=== PATIENT | female | born 1985 | race Caucasian/White ===

== ENCOUNTER → 2016-10-17 | Outpatient (CLI) | payer BC ==
[~2016-10-17] MED LIST: PERC5TAB12 PO; PRENTAB43 PO
[2016-10-17 08:10] LABS: ESTRADIOL 58.1 PG/ML; PROGESTERONE 23.1 NG/ML
== END ==
LOC: M LAB 07:15
PROVIDERS: ATTEND Obstetrics & Gynecology Reproductive Endocrinology
DX: Z31.49 Encounter for other procreative investigation and testing (principal)

== ENCOUNTER → 2016-10-24 | Outpatient (CLI) | payer BC ==
[2016-10-24 07:46] LABS: HCG, SERUM QUANTITATIVE < 1.0 MIU/ML
[2016-10-24 10:28] LABS: PROGESTERONE 17.6 NG/ML
== END ==
LOC: M LAB 06:40
PROVIDERS: ATTEND Obstetrics & Gynecology Reproductive Endocrinology
DX: Z32.00 Encounter for pregnancy test, result unknown (principal)

== ENCOUNTER → 2016-11-24 | Outpatient (CLI) | payer BC ==
[2016-11-24 10:03] LABS: ESTRADIOL 338.8 PG/ML; PROGESTERONE 8.3 NG/ML
== END ==
LOC: M LAB 06:32
PROVIDERS: ATTEND Obstetrics & Gynecology Reproductive Endocrinology
DX: N97.9 Female infertility, unspecified (principal)

== ENCOUNTER → 2016-12-01 | Outpatient (CLI) | payer BC ==
[2016-12-01 07:44] LABS: HCG, SERUM QUANTITATIVE < 1.0 MIU/ML
[2016-12-01 11:10] LABS: PROGESTERONE 8.3 NG/ML
== END ==
LOC: M LAB 06:54
PROVIDERS: ATTEND Obstetrics & Gynecology Reproductive Endocrinology
DX: Z32.00 Encounter for pregnancy test, result unknown (principal)

== ENCOUNTER → 2017-02-10 | Outpatient (CLI) | payer BC ==
[2017-02-10 10:58] LABS: ESTRADIOL 429.6 PG/ML; PROGESTERONE 59.6 NG/ML
== END ==
LOC: M LAB 06:47
PROVIDERS: ATTEND Obstetrics & Gynecology Reproductive Endocrinology
DX: N97.9 Female infertility, unspecified (principal)

== ENCOUNTER → 2017-02-17 | Outpatient (CLI) | payer BC ==
[2017-02-17 08:04] LABS: HCG, SERUM QUANTITATIVE < 1.0 MIU/ML
[2017-02-17 09:22] LABS: PROGESTERONE 4.7 NG/ML
== END ==
LOC: M LAB 06:56
PROVIDERS: ATTEND Obstetrics & Gynecology Reproductive Endocrinology
DX: N97.9 Female infertility, unspecified (principal)

== ENCOUNTER → 2017-02-27 | Outpatient (CLI) | payer BC ==
--- NOTE | 2017-02-27 07:30 | REP ---
Clinical: Infertility. Technique: Transvaginal pelvic ultrasound with britt scale and color Doppler evaluation. Comparison: 02/23/2017. Findings: Normal anteverted uterus measures 8.1 x 3.7 x 4.7 cm. The endometrial complex measures 8 mm thickness and appears normal. No pelvic or endocervical fluid is appreciated. No pelvic mass lesion. Right ovary measures 3.8 x 2.7 x 2.5 cm and includes 13 mm follicle along with multiple subcentimeter follicles. Right ovary RI equals 0.56. Left ovary measures 3.0 x 2.7 x 2.7 cm and includes multiple subcentimeter follicles. Left ovary RI equals 0.49. Impression: Normal pelvic ultrasound with predominantly subcentimeter bilateral follicles noted. Signed by Librado Jack MD 02/27/2017 07:22 A
[2017-02-27 09:22] LABS: PROGESTERONE < 0.2 NG/ML
[2017-02-27 09:23] LABS: ESTRADIOL 130.9 PG/ML
== END ==
LOC: M RAD 06:42
PROVIDERS: ATTEND Obstetrics & Gynecology Reproductive Endocrinology
DX: N97.9 Female infertility, unspecified (principal)

== ENCOUNTER → 2017-03-02 | Outpatient (CLI) | payer BC ==
--- NOTE | 2017-03-02 08:02 | REP ---
Clinical: Infertility. Technique: Transvaginal examination. Comparison: 02/27/2017. Findings: Normal anteverted uterus measures 8.3 x 3.5 x 4.8 cm. The endometrial complex measures 11 mm thickness with trace endocervical fluid in the lower uterine segment noted. No pelvic fluid or adnexal mass lesion. Right ovary measures 3.8 x 2.8 x 3.7 cm and includes four follicles measuring 10-14 mm maximal diameter along with 25-30 sub centimeter follicles. Left ovary measures 3.5 x 2.3 x 2.9 cm and includes four follicles measuring 10-14 mm maximal diameter along with 25-30 sub centimeter follicles. Impression: Multiple bilateral follicles as described above. Signed by Librado Jack MD 03/02/2017 07:53 A
[2017-03-02 10:07] LABS: PROGESTERONE < 0.2 NG/ML
[2017-03-02 10:08] LABS: ESTRADIOL 337.6 PG/ML; LUTEINIZING HORMONE 1.7 mIU/mL
== END ==
LOC: M RAD 06:35
PROVIDERS: ATTEND Obstetrics & Gynecology Reproductive Endocrinology
DX: N97.9 Female infertility, unspecified (principal)

== ENCOUNTER → 2017-03-04 | Outpatient (CLI) | payer BC ==
--- NOTE | 2017-03-04 08:54 | REP ---
Clinical: Infertility. Comparison: 03/02/2017. Findings: Anteverted uterus measures 8.7 x 3.7 x 5.0 cm. Endometrial complex measures 14 mm thickness trace endocervical fluid is again identified and unchanged. No pelvic fluid or adnexal mass lesion. Right ovary measures 4.2 x 3.4 x 3.7 cm and includes four follicles between 12 and 19 mm along with greater than 20 sub centimeter follicles. Left ovary measures 3.5 x 2.8 x 3.5 cm with three follicles between 11 and 18 mm along with greater than 20 sub centimeter follicles. Impression: Multiple bilateral follicles as detailed above. Signed by Librado Jack MD 03/04/2017 08:45 A
[2017-03-04 09:23] LABS: LUTEINIZING HORMONE 1.5 mIU/mL; PROGESTERONE 0.3 NG/ML
[2017-03-04 09:24] LABS: ESTRADIOL 573.3 PG/ML
== END ==
LOC: M RAD 06:27
PROVIDERS: ATTEND Obstetrics & Gynecology Reproductive Endocrinology
DX: N97.9 Female infertility, unspecified (principal)

== ENCOUNTER → 2017-03-13 | Outpatient (CLI) | payer BC ==
[2017-03-13 09:52] LABS: ESTRADIOL 295.2 PG/ML
[2017-03-13 11:43] LABS: PROGESTERONE 55.4 NG/ML
== END ==
LOC: M LAB 06:49
PROVIDERS: ATTEND Obstetrics & Gynecology Reproductive Endocrinology
DX: Z31.49 Encounter for other procreative investigation and testing (principal)

== ENCOUNTER → 2017-03-20 | Outpatient (CLI) | payer BC ==
[2017-03-20 08:23] LABS: HCG, SERUM QUANTITATIVE < 1.0 MIU/ML
[2017-03-20 09:33] LABS: PROGESTERONE 13.7 NG/ML
== END ==
LOC: M LAB 07:10
PROVIDERS: ATTEND Obstetrics & Gynecology Reproductive Endocrinology
DX: Z32.00 Encounter for pregnancy test, result unknown (principal)

== ENCOUNTER → 2017-09-02 | Outpatient (CLI) | payer BC ==
[2017-09-02 13:06] LABS: ESTRADIOL 705.3 PG/ML; LUTEINIZING HORMONE 3.2 mIU/mL
[2017-09-02 13:06] LABS: PROGESTERONE < 0.2 NG/ML
== END ==
LOC: M LAB 12:11
DX: N97.9 Female infertility, unspecified (principal)
CPT/HCPCS: 83002

== ENCOUNTER → 2017-09-02 | Outpatient (CLI) | payer BC | LOC: M RAD 16:09 | DX: E28.9 Ovarian dysfunction, unspecified (principal) | CPT/HCPCS: 76830 ==

== ENCOUNTER → 2017-09-16 | Outpatient (CLI) | payer BC ==
[2017-09-16 10:43] LABS: PROGESTERONE 35.8 NG/ML
[2017-09-16 10:43] LABS: ESTRADIOL 877.1 PG/ML
== END ==
LOC: M LAB 07:17
DX: E28.9 Ovarian dysfunction, unspecified (principal)
CPT/HCPCS: 84443

== ENCOUNTER → 2017-09-21 | Outpatient (CLI) | payer BC ==
[2017-09-21 08:07] LABS: HCG, SERUM QUANTITATIVE 157 MIU/ML
[2017-09-21 10:11] LABS: PROGESTERONE 26.8 NG/ML
== END ==
LOC: M LAB 07:07
DX: E28.9 Ovarian dysfunction, unspecified (principal)
CPT/HCPCS: 84702

== ENCOUNTER → 2017-09-30 | Outpatient (CLI) | payer BC ==
[2017-09-30 07:50] LABS: ESTRADIOL 839.7 PG/ML
[2017-09-30 07:58] LABS: HCG, SERUM QUANTITATIVE 5388 MIU/ML
== END ==
LOC: M RAD 06:27
DX: O09.00 Supervision of pregnancy with history of infertility, unspecified trimester (principal)
CPT/HCPCS: 76801

== ENCOUNTER → 2017-10-08 | Outpatient (CLI) | payer BC ==
[2017-10-08 08:50] LABS: HCG, SERUM QUANTITATIVE 38655 MIU/ML
[2017-10-08 10:06] LABS: PROGESTERONE 32.6 NG/ML
[2017-10-08 10:07] LABS: ESTRADIOL 381.1 PG/ML
== END ==
LOC: M RAD 07:20
DX: O34.11 Maternal care for benign tumor of corpus uteri, first trimester (principal); Z3A.01 Less than 8 weeks gestation of pregnancy
CPT/HCPCS: 76801

== ENCOUNTER → 2017-10-19 | Outpatient (CLI) | payer BC ==
[2017-10-19 14:06] LABS: BASO % 0.3 % (0.0-1.0); EOS # 0.1 10^3/uL (0.0-0.50); EOS % 1.1 % (0.0-3.0); HEMOGLOBIN 11.9 g/dl (12.0-15.5); IMMATURE GRANULOCYTE % 0.7 % (0-3.0); LYMPH # 1.4 10^3/uL (1.5-4.5); LYMPH % 20.2 % (24.0-44.0); MEAN CORPUSCULAR HEMOGLOBIN 25.1 pg (27.0-33.0); MEAN CORPUSCULAR HGB CONC 31.3 g/dl (32.0-36.5); MONO # 0.4 10^3/uL (0.0-0.8); MONO % 5.8 % (0.0-5.0); NEUTROPHILS # 5.1 10^3/uL (1.8-7.7); NEUTROPHILS % 71.9 % (36.0-66.0); PLATELET COUNT, AUTOMATED 206 10^3/uL (150-450); RED BLOOD COUNT 4.75 10^6/uL (4.00-5.40); RED CELL DISTRIBUTION WIDTH 15.6 % (11.5-14.5); WHITE BLOOD COUNT 7.1 10^3/uL (4.0-10.0)
[2017-10-19 15:31] LABS: CHLAMYDIA DNA AMPLIFICATION NEGATIVE (NEGATIVE); GC DNA AMPLIFICATION NEGATIVE (NEGATIVE)
[2017-10-21 10:45] LABS: RUBELLA IgG QUALITATIVE IMMUNE (IMMUNE)
[2017-10-21 10:58] LABS: HBsAg Prenatal NEGATIVE (NEGATIVE)
[2017-10-21 11:15] LABS: HIV 1&2 SCREEN CENTAUR NEGATIVE (NEGATIVE)
[2017-10-21 11:15] LABS: HEPATITIS C VIRUS ABY INDEX 0.1 INDEX (<0.8)
== END ==
LOC: M LAB 13:06
DX: Z34.81 Encounter for supervision of other normal pregnancy, first trimester (principal); Z3A.01 Less than 8 weeks gestation of pregnancy
CPT/HCPCS: 86762

== ENCOUNTER → 2017-11-11 | Outpatient (CLI) | payer BC | LOC: M LAB 07:07 | DX: Z36.89 Encounter for other specified antenatal screening (principal); O09.511 Supervision of elderly primigravida, first trimester; Z3A.00 Weeks of gestation of pregnancy not specified | CPT/HCPCS: 36415 ==

== ENCOUNTER → 2017-11-26 | Outpatient (CLI) | payer BC | LOC: M LAB 07:44 | DX: O09.511 Supervision of elderly primigravida, first trimester (principal) | CPT/HCPCS: 36415 ==

== ENCOUNTER → 2017-12-07 | Outpatient (CLI) | payer BC | LOC: M SMT 12:58 | DX: O09.511 Supervision of elderly primigravida, first trimester (principal) | CPT/HCPCS: 36415 ==

== ENCOUNTER → 2017-12-10 | Outpatient (CLI) | payer BC | LOC: M RAD 15:11 | DX: O09.511 Supervision of elderly primigravida, first trimester (principal); Z3A.15 15 weeks gestation of pregnancy | CPT/HCPCS: 76811 ==

== ENCOUNTER → 2018-01-21 | Outpatient (CLI) | payer BC | LOC: M RAD 15:37 | DX: Z34.82 Encounter for supervision of other normal pregnancy, second trimester (principal); Z36.89 Encounter for other specified antenatal screening; Z3A.21 21 weeks gestation of pregnancy | CPT/HCPCS: 76816 ==

== ENCOUNTER → 2018-01-26 | Outpatient (CLI) | payer BC ==
[2018-01-26 14:19] LABS: BASO % 0.5 % (0.0-1.0); EOS # 0.1 10^3/uL (0.0-0.50); EOS % 1.2 % (0.0-3.0); HEMOGLOBIN 10.4 g/dl (12.0-15.5); IMMATURE GRANULOCYTE % 0.5 % (0-3.0); LYMPH # 1.2 10^3/uL (1.5-4.5); LYMPH % 21.1 % (24.0-44.0); MEAN CORPUSCULAR HEMOGLOBIN 25.5 pg (27.0-33.0); MEAN CORPUSCULAR HGB CONC 31.5 g/dl (32.0-36.5); MEAN CORPUSCULAR VOLUME 80.9 fl (80.0-96.0); MONO # 0.5 10^3/uL (0.0-0.8); MONO % 8.4 % (0.0-5.0); NEUTROPHILS # 3.9 10^3/uL (1.8-7.7); NEUTROPHILS % 68.3 % (36.0-66.0); PLATELET COUNT, AUTOMATED 129 10^3/uL (150-450); RED BLOOD COUNT 4.08 10^6/uL (4.00-5.40); RED CELL DISTRIBUTION WIDTH 15.3 % (11.5-14.5); WHITE BLOOD COUNT 5.7 10^3/uL (4.0-10.0)
[2018-01-26 15:01] LABS: ALBUMIN/GLOBULIN RATIO 1.07 (1.00-1.93); ALKALINE PHOSPHATASE 72 U/L (45-117); ALT/SGPT 22 U/L (12-78); ANION GAP 8 MEQ/L (8-16); AST/SGOT 16 U/L (7-37); BILIRUBIN,TOTAL 0.4 MG/DL (0.2-1.0); BLOOD UREA NITROGEN 12 MG/DL (7-18); CALCIUM LEVEL 8.6 MG/DL (8.5-10.1); CARBON DIOXIDE LEVEL 25 MEQ/L (21-32); CHLORIDE LEVEL 108 MEQ/L (98-107); CREATININE FOR GFR 0.48 MG/DL (0.55-1.30); FREE T4 1.25 NG/DL (0.76-1.46); GLOMERULAR FILTRATION RATE > 60.0 (>60); GLUCOSE, FASTING 71 MG/DL (70-100); POTASSIUM SERUM 4.3 MEQ/L (3.5-5.1); SODIUM LEVEL 141 MEQ/L (136-145); TOTAL PROTEIN 5.8 GM/DL (6.4-8.2)
== END ==
LOC: M WUC 11:04
DX: R59.9 Enlarged lymph nodes, unspecified (principal)
CPT/HCPCS: 84443

== ENCOUNTER → 2018-02-01 | Outpatient (CLI) | payer BC | LOC: M RAD 06:16 | DX: R59.9 Enlarged lymph nodes, unspecified (principal) | CPT/HCPCS: 76536 ==

== ENCOUNTER → 2018-03-10 | Outpatient (CLI) | payer BC ==
[2018-03-10 17:37] LABS: HEMATOCRIT 34.3 % (36.0-47.0); HEMOGLOBIN 10.5 g/dl (12.0-15.5); MEAN CORPUSCULAR HEMOGLOBIN 24.8 pg (27.0-33.0); MEAN CORPUSCULAR HGB CONC 30.6 g/dl (32.0-36.5); MEAN CORPUSCULAR VOLUME 80.9 fl (80.0-96.0); PLATELET COUNT, AUTOMATED 130 10^3/uL (150-450); RED BLOOD COUNT 4.24 10^6/uL (4.00-5.40); RED CELL DISTRIBUTION WIDTH 14.9 % (11.5-14.5); WHITE BLOOD COUNT 5.3 10^3/uL (4.0-10.0)
[2018-03-10 17:40] LABS: GLUCOSE CHALLENGE TEST 1 HOUR 128 MG/DL (LESS THAN 140)
== END ==
LOC: M SMT 14:36
DX: Z34.82 Encounter for supervision of other normal pregnancy, second trimester (principal); Z36.89 Encounter for other specified antenatal screening
CPT/HCPCS: 82950

== ENCOUNTER 2018-05-01 09:24 | Outpatient (CLI) | payer BC ==
[~2018-05-01] VITALS: Ht 162.6 cm; Wt 102.8 kg
[~2018-05-01 09:24] MED LIST changes: +IRON240T PO; +PREN29CH2 PO
[2018-05-01 09:44] VITALS: BP 132/79
--- NOTE | 2018-05-01 11:04 | NUR ---
L&D Note: S: 33yo at 36wks presents with c/o LOF. Denies reg contractions or vaginal bleeding. Reports active movement. O: vss, AF cat 1 tracing SSE: neg Nitrazine, ferning and pooling cx: closed A/P: 23yo at 36wks not in labor or PPROM reassuring status -home with PTL precautions -FKCs -f/u next week at OB appt Inocencia Evans MD
== END 2018-05-01 10:40 | disposition home or self-care (01) ==
LOC: M LDO 09:24
PROVIDERS: ATTEND Obstetrics & Gynecology
DX: O47.9 False labor, unspecified (principal); Z3A.36 36 weeks gestation of pregnancy
CPT/HCPCS: 59025; 87081; G0378; G0463

== ENCOUNTER → 2018-05-20 | Outpatient (CLI) | payer BC ==
[~2018-05-20] MED LIST changes: +LIDOCAINE 1% MDV 20ML VIAL As Ordered ONE
--- NOTE | 2018-05-20 15:54 | REP ---
ULTRASOUND-GUIDED RIGHT SUPRACLAVICULAR LYMPH NODE BIOPSY The procedure was performed under the direct supervision of Dr. Arshad. Patient has a history of a 5.9 x 3.5 x 4.8 cm lymph node in the right supraclavicular region seen on a previous ultrasound dated 02/01/2018. The risks and benefits of the procedure were explained to the patient and informed consent was obtained. The right supraclavicular lymph node was localized using ultrasound guidance. The skin was prepped and draped in a sterile fashion. 1% lidocaine was used as a local anesthetic. Using ultrasound guidance a 19/20 gauge coaxial needle biopsy system was inserted and advanced into the lymph node. Eight core biopsy samples were obtained and sent to lab. The patient tolerated the procedure well and there were no immediate complications. After the appropriate amount of monitored convalescence the patient was discharged from the department. Reviewed by IRIS Nickerson 05/20/2018 01:38 P Electronically Signed by Chalo Arshad MD 05/20/2018 03:46 P
== END ==
LOC: M RADPRO 08:21
PROVIDERS: ATTEND Internal Medicine Hematology & Oncology
DX: C85.11 Unspecified B-cell lymphoma, lymph nodes of head, face, and neck (principal)

== ENCOUNTER 2018-05-28 15:45 | Inpatient (IN) | payer BC ==
[2018-05-28] VITALS (7 sets, daily range): BP systolic 101–130; BP diastolic 56–82
[~2018-05-28] VITALS: Ht 162.6 cm; Wt 106.2 kg
[~2018-05-28 15:45] MED LIST changes: -LIDOCAINE 1% MDV 20ML VIAL As Ordered ONE
[2018-05-28 17:07] LABS: HEMATOCRIT 35.9 % (36.0-47.0); HEMOGLOBIN 11.5 g/dl (12.0-15.5); MEAN CORPUSCULAR HEMOGLOBIN 25.8 pg (27.0-33.0); MEAN CORPUSCULAR VOLUME 80.7 fl (80.0-96.0); PLATELET COUNT, AUTOMATED 122 10^3/uL (150-450); RED BLOOD COUNT 4.45 10^6/uL (4.00-5.40); WHITE BLOOD COUNT 6.1 10^3/uL (4.0-10.0)
[2018-05-28] MEDS: miSOPROStol 50 MCG 1/2 TAB (S0191) PO SCH ×2 (17:11→21:20)
--- NOTE | 2018-05-28 17:38 | HPE ---
DATE OF ADMISSION: 05/28/2018 Terra is a 33-year-old 2, para 0-0-1-0 at 40 weeks gestation with an estimated date of confinement (EDC) of 05/28/2018 based on in-vitro fertilization (IVF) transfer. She presents to labor and delivery today per consult with Dr. Inocencia Evans for induction of labor due to term . She does deny any regular contractions, vaginal bleeding, and leakage of fluid. The fetus has been active. Her care was initiated at [facility] in the first trimester. Her course complicated by panorama testing which demonstrated high risk for triploidy fetus, trisomy 18 or 13. She did undergo a center consult and ultrasound, which demonstrated normal anatomy. She was offered an amniocentesis, which she declined. The patient feels that her test was a false positive. Advanced maternal age. She has undergone a recent right neck lymph node biopsy on 05/20/2017 with pathology that reports high-grade B-cell lymphoma, not otherwise specified. Final diagnosis will be issued when results of her FISH are reported. The patient is unaware of this diagnosis at this time. She is scheduled in 6 days to review these results at hematology/oncology here in [place]. OBSTETRICAL HISTORY: September 2014 she had a right ectopic with a right salpingectomy. OBSTETRIC LABORATORIES: A positive, antibody screen negative. Pap was normal. Rubella immune. VDRL nonreactive. Urine culture: No growth. Hepatitis B surface antigen negative. HIV negative. Hepatitis C nonreactive. Gonorrhea and chlamydia negative. Panorama testing: High risk for trisomy 18 or 13. Gestational diabetic screening normal at 128, and her GBS is negative. PAST MEDICAL HISTORY: Childhood varicella. SURGERIES: 1. Right salpingectomy. 2. Cholecystectomy. FAMILY HISTORY: Mental retardation/autism. SOCIAL HISTORY: The patient is . She is a nonsmoker. Denies alcohol and drug use. She does have a history for human papilloma virus (HPV). She denies history of abuse, physical, sexual, and emotional. ALLERGIES: No known drug allergies. CURRENT MEDICATIONS: Include vitamin PHYSICAL EXAMINATION: Temperature 98.4, pulse 76, respirations 18, blood pressure (BP) 110/79. heart rate is 130 with moderate variability. Positive accelerations. No decelerations observed. No pattern of regular contractions. Her abdomen is gravid, cephalic presentation. Estimated weight 8 pounds. Sterile vaginal exam: 1.5 cm dilated, 75% effaced, -3 station. Posterior. Moderate texture. No bloody show. ASSESSMENT: Intrauterine at 40 weeks. heart rate category 1. PLAN: Admit the patient to labor per consult with Dr. Inocencia Evans. Routine labs. Out of bed ad bishnu. Regular diet at this time. Saline lock. I do plan to start misoprostol 50 mcg by mouth every 4 hours for cervical ripening. I did review risks to induction, including, but not limited to, intolerance to labor, increased risk for section, arrest of labor, arrest of descent. The patient has been verbally consented for emergency surgery and blood products if necessary. The patient and her have had all their questions answered and do desire to proceed with induction. LES
[2018-05-29] VITALS (10 sets, daily range): BP systolic 101–131; BP diastolic 57–87
[2018-05-29] MEDS: miSOPROStol 50 MCG 1/2 TAB (S0191) PO SCH (02:11)
[2018-05-29] MEDS ORDERED: BUTORPHANOL 2 MG/ML INJ (J0595) IV ONE (04:45)
[2018-05-29] MEDS ORDERED: PROMETHAZINE INJ 25 MG/ML VIAL (J2550) IV ONE (04:45)
[2018-05-29] MEDS ORDERED: OXYTOCIN DRIP 30 UNITS in APPROPRIATE DILUENT 1 EA IV SCH ×2 (04:45→14:16)
[2018-05-29] MEDS: LR 1,000 ML IV SCH ×2 (06:35→08:55)
[2018-05-29 12:46] LABS: HEMATOCRIT 34.5 % (36.0-47.0); HEMOGLOBIN 10.9 g/dl (12.0-15.5); MEAN CORPUSCULAR HEMOGLOBIN 25.4 pg (27.0-33.0); MEAN CORPUSCULAR HGB CONC 31.6 g/dl (32.0-36.5); MEAN CORPUSCULAR VOLUME 80.4 fl (80.0-96.0); PLATELET COUNT, AUTOMATED 106 10^3/uL (150-450); RED BLOOD COUNT 4.29 10^6/uL (4.00-5.40); WHITE BLOOD COUNT 8.8 10^3/uL (4.0-10.0)
[2018-05-29] MEDS ORDERED: OXYTOCIN INJ 10 UNITS/ML VIAL (J2590) As Ordered ONE ×2 (12:58→14:03)
[2018-05-29] MEDS ORDERED: ONDANSETRON 4MG/2ML VIAL (J2405) As Ordered ONE (12:59)
[2018-05-29] MEDS ORDERED: dexameTHASONE 4 MG/ML 1ML VIAL (J1100) As Ordered ONE (12:59)
[2018-05-29] MEDS ORDERED: BUPIVACAINE/DEXTROSE 0.75% 2 ML AMP As Ordered ONE (12:59)
[2018-05-29] MEDS ORDERED: BICITRA 30ML SOLN UDC As Ordered ONE (12:59)
[2018-05-29] MEDS ORDERED: KETOROLAC 60 MG/2 ML VIAL (J1885) As Ordered ONE (12:59)
[2018-05-29] MEDS ORDERED: TERBUTALINE SULFATE 1 MG/ML VIAL (J3105) As Ordered ONE (13:00)
[2018-05-29] MEDS ORDERED: ceFAZolin 2 GM/D5W 50 ML IV BAG (J0690 PER 500MG) As Ordered ONE (13:00)
[2018-05-29] MEDS ORDERED: MORPHINE PRES-FREE INJ 10 MG/10 ML VIAL (J2274) As Ordered ONE (13:02)
[2018-05-29] MEDS ORDERED: fentaNYL 100 MCG/2 ML INJECTION (J3010) As Ordered ONE (13:02)
--- NOTE | 2018-05-29 13:08 | NUR ---
L&D Note - Call to room for prolong brachycardia with recurrent decelerations. 2nd episode of off turning pitocin off. terbutaline given. Plan to proceed with 1LTC S for nonreassuring tracing / inability to augment labor. Consents signed and and Urf notified. Inocencia Evans MD
[2018-05-29] MEDS ORDERED: BICITRA 30ML SOLN UDC PO ONE (13:15)
[2018-05-29] MEDS ORDERED: ONDANSETRON 4MG/2ML VIAL (J2405) IV PRN ×2 (13:19→14:30)
[2018-05-29] MEDS ORDERED: METOCLOPRAMIDE INJ 10MG/2ML VIAL (J2765) IV PRN (13:19)
[2018-05-29] MEDS ORDERED: NALOXONE INJ 0.4 MG/1 ML VIAL (J2310) IV PRN ×2 (13:19)
[2018-05-29] MEDS ORDERED: diphenhydrAMINE INJ 50MG/ML VIAL (J1200) IV PRN (13:19)
[2018-05-29] MEDS ORDERED: NALBUPHINE HCL 10 MG/ML AMP (J2300) IV PRN (13:19)
[2018-05-29] MEDS ORDERED: TERBUTALINE SULFATE 1 MG/ML VIAL (J3105) SC ONE (13:45)
[2018-05-29 13:46] LABS: CORD GAS ABE A -3.1; CORD GAS HCO3 A 23.3 MEQ/L; CORD GAS O2 SAT A 78.1 %; CORD GAS PCO2 A 46.1 mmHg; CORD GAS PH A 7.321 UNITS; CORD GAS PO2 A 35.9 mmHg; CORD GAS SBC A 21.4 MEQ/L; CORD GAS TCO2 A 24.7 MEQ/L
[2018-05-29 13:49] LABS: CORD GAS ABE V -0.9; CORD GAS HCO3 V 27.9 MEQ/L; CORD GAS O2 SAT V 37.8 %; CORD GAS PCO2 V 62.8 mmHg; CORD GAS PH V 7.265 UNITS; CORD GAS PO2 V 19.1 mmHg; CORD GAS SBC V 22.1 MEQ/L; CORD GAS TCO2 V 29.8 MEQ/L
[2018-05-29] MEDS ORDERED: IBUP1TAB7 PO (14:24)
[2018-05-29] MEDS ORDERED: PERCOCET PO (14:25)
[2018-05-29] MEDS ORDERED: NORCO, ANEXSIA 5/325MG TABLET (HYDROcodone/ACETAMINOPHEN) PO PRN (14:30)
[2018-05-29] MEDS ORDERED: LR 1,000 ML IV SCH (14:30)
[2018-05-29] MEDS ORDERED: MOM 30ML SUSPENSION UDC PO PRN (14:30)
[2018-05-29] MEDS ORDERED: PERCOCET 5MG/325MG TAB PO PRN (14:30)
[2018-05-29] MEDS ORDERED: MEASLES,MUMPS,RUBELLA VACCINE INJ (MMR-II) (90707) SC SCH (14:30)
[2018-05-29] MEDS ORDERED: RHOGAM 300 MCG (1500 IU) INJ (J2790) IM SCH (14:30)
[2018-05-29] MEDS ORDERED: fentaNYL 100 MCG/2 ML INJECTION (J3010) IV PRN (14:30)
[2018-05-29] MEDS ORDERED: ePHEDrine SULFATE 25 MG/5 ML(5MG/ML) SYRINGE IV PRN (14:30)
[2018-05-29] MEDS ORDERED: OXYTOCIN 30 UNITS IN 0.9% NaCl 500ML IV BAG (J2590) As Ordered ONE (15:03)
[2018-05-29] MEDS: DOCUSATE SODIUM 100 MG CAP PO SCH (20:04)
[2018-05-29] MEDS: KETOROLAC 30 MG/ML VIAL (J1885) IV SCH (20:04)
[2018-05-30] MEDS: KETOROLAC 30 MG/ML VIAL (J1885) IV SCH ×2 (01:50→08:42)
[2018-05-30 01:53] VITALS: BP 100/67
[2018-05-30 05:47] VITALS: BP 97/54
[2018-05-30 07:24] LABS: HEMATOCRIT 32.8 % (36.0-47.0); HEMOGLOBIN 10.2 g/dl (12.0-15.5); MEAN CORPUSCULAR HEMOGLOBIN 25.5 pg (27.0-33.0); MEAN CORPUSCULAR HGB CONC 31.1 g/dl (32.0-36.5); PLATELET COUNT, AUTOMATED 134 10^3/uL (150-450)
[2018-05-30] MEDS: PRENATAL VITAMINS CHEWABLE TABLET PO SCH (08:41)
[2018-05-30] MEDS: DOCUSATE SODIUM 100 MG CAP PO SCH ×2 (08:41→19:55)
--- NOTE | 2018-05-30 10:10 | NUR ---
POD#1 S: Doing well w/o complaints. Tolerating diet, ambulating, voiding and pain well controlled. O: vss, AF gen: well appearing abd: soft, appropriately tender incision: dress ext: neg calf tenderness A/P: POD #1 s/p emergent 1LTCS - stable -continue /postoperative care -d/c plans for tomorrow Inocencia Evans MD
[2018-05-30 10:46] VITALS: BP 105/62
[2018-05-30] MEDS: PERCOCET 5MG/325MG TAB PO PRN ×2 (12:33→19:55)
--- NOTE | 2018-05-30 15:37 | RO ---
DATE OF PROCEDURE: 05/29/2018 PREPROCEDURE DIAGNOSIS: Nonreassuring heart rate tracing with bradycardia and repetitive variable decelerations. POSTPROCEDURE DIAGNOSIS: Nonreassuring heart rate tracing with bradycardia and repetitive variable decelerations. PROCEDURE PERFORMED: Primary low transverse section. SURGEON: Inocencia Evans MD ASSISTANTS: Radames Espinoza MD ANESTHESIA: Spinal. ESTIMATED BLOOD LOSS: 600 mL. INTRAVENOUS FLUIDS: 1600 mL of lactated Ringer solution. URINE OUTPUT: 100 mL. OPERATIVE FINDINGS: Liveborn male , scores 9 and 9. Weight was 3030 grams or 6 pounds 6 ounces. PREOPERATIVE ANTIBIOTICS: 2 grams of Ancef. SPECIMENS: Placenta. Cord blood and cord gases. Cord gas was 7.32, 7.26 with base excesses of minus 3.1 and minus 0.9. DESCRIPTION OF OPERATION: After informed consent was obtained and written consent was reviewed, the patient was brought to the operating room urgently where spinal anesthesia was placed. She was then placed in supine position with a left lateral tilt. She had a Carranza catheter, which was previously placed and set to gravity. She was prepped and draped in normal sterile fashion. A time-out in the operating room was then performed, identifying the patient, procedure to be performed, as well as drug allergies. Anesthesia was tested and deemed to be adequate. A Pfannenstiel skin incision was then made and carried down to the underlying rectus fascia. The fascia was scored and this incision was extended bilaterally. The fascia was then dissected off the underlying rectus muscles both superiorly and inferiorly. The rectus muscles were then in the midline. The peritoneum was then entered. The vesicouterine peritoneum was then was tented and excised to create a bladder flap. The bladder blade was then placed to retract back the bladder. A curvilinear incision was then made in the lower uterine segment. Amniotomy was then performed productive of clear fluid. The uterine incision was then extended. head was brought to the level of the incision and delivered atraumatically, followed by shoulders and corpus. Cord was clamped times two and was taken over to the warmer with dining service inspector waiting with good cry. Cord gases and blood was obtained. Placenta was then drained and delivered grossly intact. The uterus was then exteriorized and cleared of all clots and debris. The uterine incision was then closed in two layers using #0 Vicryl first in a running locking fashion and second layer closure in a running nonlocking fashion. A set of [id number] stitches were placed for hemostasis. The abdomen was then suctioned. The uterus was returned to the patient's abdomen and was reinspected and noted to be hemostatic. The anterior peritoneum was then reapproximated with #3-0 Vicryl. The rectus muscles were reapproximated with #3-0 Vicryl. The fascia was then closed with #0 Vicryl in a running nonlocking fashion. The subcutaneous tissue was then irrigated and suctioned. Subcutaneous tissue was then reapproximated with #3-0 Vicryl. Several subdermal stitches were placed with #3-0 Vicryl and the skin was closed with #4-0 Monocryl in a subcuticular fashion. The incision was then cleaned and dry. Steri-Strips were applied over the incision. The incision was dressed. The patient was then taken to recovery in stable condition. Counts were correct. The couple has decided to name their son, Enzo Mccabe. Dr. Espinoza, my ophthalmic surgical assistant, played an essential role during the surgery. He assisted with tissue identification, retraction, delivery of the , as well as wound closure.
[2018-05-30] MEDS: IBUPROFEN 800 MG TAB PO SCH ×2 (16:55→23:57)
[2018-05-30 18:26] VITALS: BP 110/66
[2018-05-30 22:00] VITALS: BP 127/79
[2018-05-31 02:00] VITALS: BP 105/54
[2018-05-31 06:00] VITALS: BP 115/64
[2018-05-31] MEDS: DOCUSATE SODIUM 100 MG CAP PO SCH (07:58)
[2018-05-31] MEDS: PRENATAL VITAMINS CHEWABLE TABLET PO SCH (07:58)
[2018-05-31] MEDS: IBUPROFEN 800 MG TAB PO SCH (07:59)
--- NOTE | 2018-05-31 09:50 | DSES ---
DATE OF ADMISSION: 05/28/2018 DATE OF DISCHARGE: 05/31/2018 DISCHARGE DIAGNOSIS: Primary section for nonreassuring heart rate tracing. PROCEDURES PERFORMED WHILE IN HOSPITAL: 1. Spinal anesthesia. 2. section. DISCHARGE CONDITION: Stable. HISTORY AND HOSPITAL COURSE: Mrs. Coleman is a 33-year-old 2, initially para 0, then presented for induction of labor. She underwent an uncomplicated section for a nonreassuring heart rate tracing, which was uncomplicated. Estimated blood loss was 600 mL. section was productive of a liveborn male infant with scores of 9 and 9, weight was 3030 grams or 6 pounds 6 ounces. She did well postoperatively. By postoperative day 2, had met all discharge criteria and was discharged home in stable condition. PHYSICAL EXAMINATION ON DAY OF DISCHARGE: Her vital signs were stable. She was afebrile. Her general appearance is well appearing, in no acute distress. Her abdomen was appropriately tender. Fundus was firm below umbilicus. Incision was dressed. Extremities were negative for calf tenderness. DISCHARGE MEDICATIONS: : - ibuprofen - Percocet DISCHARGE INSTRUCTIONS: 1. She was instructed to follow-up in two weeks for her incision check. 2. To report severe pain, heavy vaginal bleeding, fever or incisional issues. 3. To remain on pelvic rest.
[2018-05-31] MEDS ORDERED: MOM30SS PO (10:26)
[2018-05-31] MEDS ORDERED: COLA100C5 PO (10:26)
[2018-05-31] MEDS ORDERED: OXYC1TAB23 PO (10:29)
== END 2018-05-31 12:55 | disposition home or self-care (01) | DRG 540 ==
LOC: M LDI 15:45 → M OBS 05-29 15:59
PROVIDERS: ADMIT Advanced Practice Midwife; ATTEND Advanced Practice Midwife
PROC: 3E0DXGC Introduction of Other Therapeutic Substance into Mouth and Pharynx, External Approach (ICD-10-PCS; 2018-05-28)
PROC: 10D00Z1 Extraction of Products of Conception, Low, Open Approach (ICD-10-PCS; principal; 2018-05-29 13:10)
DX: O48.0 Post-term pregnancy (principal); O09.523 Supervision of elderly multigravida, third trimester; Z37.0 Single live birth; Z3A.40 40 weeks gestation of pregnancy; O76 Abnormality in fetal heart rate and rhythm complicating labor and delivery

== ENCOUNTER → 2018-06-10 | Outpatient (CLI) | payer BC ==
[~2018-06-10] MED LIST changes: +ALPR2TAB3 PO; +COLA100C5 PO; +IBUP1TAB7 PO; +MOM30SS PO; +OXYC1TAB23 PO; +PERCOCET PO
--- NOTE | 2018-06-10 20:56 | ECHO ---
DATE OF PROCEDURE: 06/10/2018 REFERRING PHYSICIAN: Dr. Mali Weldon INDICATION: Non-Hodgkin lymphoma. Height 160 cm, weight 100 kg. DIMENSIONS: IVS: 1.0 LV: 5.0 LVPW: 1.0 LA: 3.9 Aorta: 2.8 IVC: 2.5 Mitral E wave velocity: 107 A wave: 81 E prime septal: 8.6 E prime lateral: 16.0 Left atrial volume index: 31 FINDINGS: The study is of fair technical quality corresponding to patient's body habitus. Left ventricle is of normal size and systolic function, I estimate ejection fraction (EF) around 65%. Right ventricle does not appear enlarged and is normally contractile. Left atrium is mildly enlarged. Right atrium was poorly seen. Aortic, mitral, tricuspid and pulmonic valves were all reasonably well seen and appear normal. No pericardial effusion is noted. Inferior vena cava is dilated, and there is no appreciable collapse with respiration, indicative of high central venous pressure. Aortic root, aortic arch and abdominal aorta appear normal. Doppler interrogation reveals no aortic stenosis or insufficiency. There is trace mitral and trace tricuspid insufficiency. Calculated pulmonary artery pressure is at least 50 mmHg corresponding to moderate pulmonary hypertension. Mitral inflow pattern and tissue Doppler imaging of mitral annulus revealed normal diastolic function left ventricle. CONCLUSIONS: 1. Study is of fair technical quality. 2. Normal left ventricular (LV) size and systolic function, probably normal diastolic function. 3. No significant valvular disease. 4. High central venous pressure and at least moderate pulmonary hypertension. COMMENT: Subacute bacterial endocarditis (SBE) prophylaxis is not recommended. The etiology of pulmonary hypertension seems to be less likely due to left-sided congestive heart failure.
== END ==
LOC: M CARPUL 10:26
PROVIDERS: ATTEND Internal Medicine Hematology & Oncology
DX: C85.94 Non-Hodgkin lymphoma, unspecified, lymph nodes of axilla and upper limb (principal)

== ENCOUNTER → 2018-06-25 | Outpatient (CLI) | payer BC ==
[~2018-06-25] MED LIST changes: +ACET-683 PO; +LIDO2.5C15 TOP; +LIDOCAINE 2% MDV 20 ML VIAL As Ordered ONE; +LIDOCAINE W/EPINEPHRINE 1% 20ML VIAL As Ordered ONE; +MIDAZOLAM INJ 2 MG/2 ML VIAL (J2250) As Ordered ONE; +ONDA8TAB8 PO; +PRED50TA PO; +ZYLO300T6 PO; +ceFAZolin 1GM INJ (J0690 PER 500MG) As Ordered ONE; +fentaNYL 100 MCG/2 ML INJECTION (J3010) As Ordered ONE
--- NOTE | 2018-06-25 16:06 | ROOPDOC ---
[facility] Report Of Operation Report of Operation DATE OF PROCEDURE: 06/25/18 PREPROCEDURE DIAGNOSES: Large B-cell non-Hodgkin's lymphoma, need for IV access POSTPROCEDURE DIAGNOSES: Same. PROCEDURE: 1. Ultrasound-guided access left internal jugular vein 2. Placement of a 24 cm tunneled Port-A-Cath, left chest, left internal jugular vein SURGEON: Nahomy Darden MD ANESTHESIA: 20 mL of lidocaine with epinephrine, moderate IV conscious sedation was supervised by Dr. Darden, and the patient was independently monitored by a registered nurse assigned to the Department of radiology using automated blood pressure, EKG and pulse oximetry. The details conscious record is currently started in the hospital information system. The following is a conscious sedation record: Versed 1 mg IV, fentanyl 75 g IV, start time 13:29, and time 14:08. The patient tolerated the procedure well and had no complications from the sedation. She was monitored post procedure and then discharged in stable condition. INDICATION FOR PROCEDURE: Ms. Bashir is a 33-year-old patient with a large B- cell non-Hodgkin's lymphoma and requires access for blood draws and medications. We've been asked by her oncologist for a port placement. Risks, benefits and alt ernatives were explained to the patient and all questions were answered. She was agreeable to proceed. Informed consent was obtained. During the preop exam, it was obvious that the patient had a large lymph node in her right neck. This made the left neck. The suitable choice for port placement and access. INTERPRETATION: 1. The port is in good placement on the left chest with the catheter tunneled to the left internal jugular and the tip freely mobile at the right atrial junction. There are no kinks noted in the catheter. There is no pneumothorax. PROCEDURE: The patient was brought to the angiographic suite in stable condition. Her left neck and chest were prepped and draped in a sterile fashion. A timeout was performed. Local anesthesia was administered to the skin and subcutaneous tissue over the jugular access site and then for tunneling over the clavicle and then for the pocket on the left chest. A microneedle was used to access the jugular vein under ultrasound guidance. A wire was passed through this access. Under fluoroscopic guidance the needle was removed. A small incision was made at the jugular access site with the skin knife and a micro- sheath was placed over the wire using a Seldinger technique. The wire was exchanged under fluoroscopic guidance for J-wire into the central system. The sheath was then exchanged for a peel-away sheath over the wire using a Seldinger technique. We then made a small incision caudal to the clavicle on the left chest and gentle blunt dissection was used to make a pocket for the port. We then tunneled the catheter to the jugular access site and the tip of the catheter was advanced through the peel-away sheath. The peel-away sheath was removed. The catheter was examined under fluoroscopy, and when the tip was freely mobile at the right atrium. We assess the length at 24 cm and a catheter was cut to this clinic. We then attached the catheter to the port securely in the port was delivered into the pocket on the left chest. The port efrem back and flushed easily and was heparin locked. We then irrigated the left neck access site and the left chest pocket with saline. 4-0 Vicryl was used to approximate the deeper tissues over the port in the left chest and running subcuticular Monocryl suture was used to close the skin. 2 interrupted Monocryl sutures were used to close the access site over the jugular vein. Following this, Steri- Strips were placed over both wounds. Dry dressings were placed over the Steri- Strips and the patient was allowed to transfer back to recovery. There were no complications. She tolerated the entire procedure well and will be discharged following her recovery. ESTIMATED BLOOD LOSS: Approximately 2 mL. COMPLICATIONS: None. PLAN: It is okay for the patient to use support for blood draws and medications as needed. NAHOMY DARDEN MD Jun 25, 2018 16:06
== END | disposition home or self-care (01) ==
LOC: M IRPRO 11:41
PROVIDERS: ATTEND Internal Medicine Hematology & Oncology
DX: C83.30 Diffuse large B-cell lymphoma, unspecified site (principal)
CPT/HCPCS: 36561; 77001; 99152; 99153; C1788; C1894; J0690; J2250; J3010

== ENCOUNTER → 2018-09-16 | Outpatient (CLI) | payer BC ==
[~2018-09-16] MED LIST changes: +CENTCHW4 PO; +CLAR10CA3 PO; -LIDOCAINE 2% MDV 20 ML VIAL As Ordered ONE; -LIDOCAINE W/EPINEPHRINE 1% 20ML VIAL As Ordered ONE; -MIDAZOLAM INJ 2 MG/2 ML VIAL (J2250) As Ordered ONE; -ceFAZolin 1GM INJ (J0690 PER 500MG) As Ordered ONE; -fentaNYL 100 MCG/2 ML INJECTION (J3010) As Ordered ONE
--- NOTE | 2018-09-16 16:13 | ECHO ---
DATE OF STUDY: 09/16/2018 REFERRING PHYSICIAN: Dr. Mali Weldon INDICATION: Chemotherapy drugs that may effect the heart. HEIGHT: 64 inches WEIGHT: 200 pounds 2-D MEASUREMENTS: Aortic root: 3.1 cm Left atrium: 3.1 cm Ventricular septum: 1.0 cm Posterior wall: 1.12 cm Left ventricle diastole: 3.7 cm LVOT: 2.0 cm Inferior vena cava: 1.9 cm DOPPLER MEASUREMENTS: Aortic valve velocity: 119 cm/s LVOT VTI: 19.2 cm Mitral E velocity: 77.1 cm/s Mitral A velocity: 64.5 cm/s Mitral deceleration time: 194 ms Very mild tricuspid regurgitation. Pulmonary artery systolic pressure of 21 mmHg. MITRAL ANNULAR TISSUE DOPPLER: E prime septal: 8.16 cm/s E prime lateral: 12.7 cm/s DESCRIPTION: Rhythm was sinus. Image quality was good. This is a 2-D, M-mode, color flow Doppler and pulsed wave Doppler examination and included mitral annular tissue Doppler. CONCLUSIONS: 1. Normal left ventricle internal dimensions and wall thickness. Normal regional LV wall motion and wall thickening. Normal LV systolic function. Left ventricular ejection fraction (LVEF) 60% by visual estimate. Normal 1 LV diastolic function. 2. Tiny pericardial effusion. 3. Otherwise, normal echocardiogram-Doppler findings.
== END ==
LOC: M CARPUL 09:22
PROVIDERS: ATTEND Internal Medicine Hematology & Oncology
DX: I50.1 Left ventricular failure, unspecified (principal)

== ENCOUNTER → 2018-11-30 | Outpatient (CLI) | payer BC ==
--- NOTE | 2018-12-01 08:36 | REP ---
PET/CT: HISTORY: Restaging lymphoma. Post chemotherapy. Diffuse large B-cell non-Hodgkin's lymphoma. COMPARISONS: Comparison PET-CT June 19, 2018. TECHNIQUE: 60 minutes following the intravenous injection of a 9.87 mCi dose of F-18 FDG, three-dimensional PET scintigraphy is acquired from the skull base to the proximal thighs. Triplanar noncontrast CT scanning is acquired through the same anatomic range for attenuation correction, and image registration with scan parameters optimized to minimize radiation exposure to the patient. PET scintigraphy and CT datasets were fused and displayed on a workstation with multiplanar and projection display capability. PET/CT FINDINGS: The patient's previously noted extensive and bulky lymphadenopathy is markedly improved since the prior PET-CT June 19, 2018. The previously extensive bulky right supraclavicular lymphadenopathy is much improved. There is residual mild hypermetabolic uptake in the right supraclavicular soft tissues with maximum standard uptake value of 2.43. There is some infiltration in the supraclavicular fat in this area but no definite mass lesion is seen. There is no evidence of hypermetabolic axillary adenopathy on either side. No hypermetabolic mediastinal or hilar adenopathy is seen. No abnormal hepatic or splenic hypermetabolic activity is seen. The retroperitoneal adenopathy is improved. There is some residual FDG accumulation in retroperitoneal periaortic nodes, maximum standard uptake value in the range of 2.45 to 2.57. At the aortic bifurcation, there is a focus of with maximum standard uptake of 3.16. However, all of this has markedly improved. Adenopathy or soft tissue density persists along the right and, to a lesser extent, left pelvic sidewall. There is a 1 cm focus in the right external iliac lymph node chain with maximum standard uptake value of 3.35. A little more caudally in the right pelvis along the pelvic sidewall, there is a focus with maximum standard uptake value of 4.63. There is mild residual adenopathy along the left pelvic sidewall, SUV 4.74. There is a residual vane focus in the right inguinal soft tissues with maximum standard uptake value 3.50. All of these areas are much improved. No new focus is seen. IMPRESSION: There has been dramatic improvement, although some persistent vane foci of mildly hypermetabolic uptake remain as above. Electronically Signed by Logan Reed MD 12/01/2018 09:11 A
== END ==
LOC: M PLARAD 09:15
PROVIDERS: ATTEND Internal Medicine Hematology & Oncology
DX: C83.31 Diffuse large B-cell lymphoma, lymph nodes of head, face, and neck (principal)

== ENCOUNTER → 2019-03-15 | Outpatient (CLI) | payer BC ==
--- NOTE | 2019-03-15 13:43 | REP ---
PET/CT: HISTORY: Restaging lymphoma. Status post six cycles of chemotherapy, last dose October 20, 2018. COMPARISONS: Comparison PET/CT studies are reviewed from November 30, 2018. There is also an outside comparison PET/CT study from June 19, 2018. TECHNIQUE: 58 minutes following the intravenous injection of a 9.33 mCi dose of F-18 FDG, three-dimensional PET scintigraphy is acquired from the skull base to the proximal thighs. Triplanar noncontrast CT scanning is acquired through the same anatomic range for attenuation correction, and image registration with scan parameters optimized to minimize radiation exposure to the patient. PET scintigraphy and CT datasets were fused and displayed on a workstation with multiplanar and projection display capability. PET/CT FINDINGS: There are no morphologic interval changes on accompanying CT study since the most recent prior PET/CT study. There is a focus of mildly hypermetabolic uptake in the right subclavicular soft tissues with maximum standard uptake value 3.23. Minimal uptake was observed here previously (2.43). No definite mass is seen here. Periaortic mildly hypermetabolic uptake is again seen with maximum standard uptake value 2.47, previously 2.45-2.57. There is no hypermetabolic uptake visible today at the aortic bifurcation. There is no definite pelvic sidewall adenopathy. There is some normal symmetric ovarian uptake. No definite pelvic sidewall hypermetabolic abnormality. However, there is residual hypermetabolic activity in the right inguinal soft tissues in an area of residual soft tissue fullness measuring 3.1 cm in greatest diameter. Maximum standard uptake value here is 5.03, previously 3.5. No other abnormal finding. Spleen size is borderline with transverse diameter 12.5 cm. This is unchanged from most recent prior PET/CT study and improved from the original PET/CT. IMPRESSION: There are residual foci of hypermetabolic uptake in the right subclavian right inguinal and possibly periaortic lymph node residuals. These foci are similar to the most recent prior study. The inguinal soft tissues appear improved from the most recent prior study. No new focus of increased uptake is seen. Electronically Signed by Logan Reed MD 03/15/2019 02:20 P
== END ==
LOC: M PLARAD 08:33
PROVIDERS: ATTEND Internal Medicine Hematology & Oncology
DX: C85.91 Non-Hodgkin lymphoma, unspecified, lymph nodes of head, face, and neck (principal)
CPT/HCPCS: 78815; A9552

== ENCOUNTER → 2019-04-06 | Outpatient (REF) | payer OTHER, BC ==
[2019-04-06 09:58] LABS: BASO # 0.1 10^3/uL (0.0-0.2); EOS # 0.4 10^3/uL (0.0-0.5); EOS % 7.5 % (0.0-3.0); HEMATOCRIT 43.9 % (36.0-47.0); HEMOGLOBIN 13.6 g/dl (12.0-15.5); LYMPH # 1.4 10^3/uL (1.5-5.0); LYMPH % 27.3 % (24.0-44.0); MEAN CORPUSCULAR HEMOGLOBIN 25.1 pg (27.0-33.0); MONO # 0.4 10^3/uL (0.0-0.8); MONO % 8.3 % (0.0-5.0); NEUTROPHILS # 2.9 10^3/uL (1.5-8.5); NEUTROPHILS % 55.7 % (36.0-66.0); PLATELET COUNT, AUTOMATED 231 10^3/uL (150-450); RED BLOOD COUNT 5.42 10^6/uL (4.00-5.40); WHITE BLOOD COUNT 5.2 10^3/uL (4.0-10.0)
[2019-04-06 10:10] LABS: INR 1.04; PROTHROMBIN TIME 13.3 SECONDS (11.8-14.0)
[2019-04-06 10:32] LABS: ALBUMIN 3.7 GM/DL (3.2-5.2); ALT/SGPT 19 U/L (12-78); BILIRUBIN,TOTAL 0.3 MG/DL (0.2-1.0); BLOOD UREA NITROGEN 22 MG/DL (7-18); CALCIUM LEVEL 8.6 MG/DL (8.5-10.1); CARBON DIOXIDE LEVEL 27 MEQ/L (21-32); CHLORIDE LEVEL 109 MEQ/L (98-107); CREATININE FOR GFR 0.63 MG/DL (0.55-1.30); GLOMERULAR FILTRATION RATE > 60.0 (>60); GLUCOSE, FASTING 92 MG/DL (70-100); LDH LACTATE DEHYDROGENASE 122 U/L (84-246); POTASSIUM SERUM 4.8 MEQ/L (3.5-5.1); SODIUM LEVEL 139 MEQ/L (136-145); TOTAL PROTEIN 6.6 GM/DL (6.4-8.2)
[2019-04-06 13:00] LABS: HEPATITIS B SURFACE ANTIBODY NEGATIVE (POSITIVE)
[2019-04-06 13:10] LABS: HEPATITIS B SURFACE ANTIGEN NEGATIVE (NEGATIVE)
[2019-04-06 13:39] LABS: HEPATITIS B CORE ANTIBODY IGM NEGATIVE (NEGATIVE)
[2019-04-06 14:24] LABS: HEPATITIS C VIRUS ABY INDEX 0.2 INDEX (<0.8)
== END ==
LOC: M LAB REF 09:44
DX: C83.38 Diffuse large B-cell lymphoma, lymph nodes of multiple sites (principal)

== ENCOUNTER → 2019-05-23 | Outpatient (REF) | payer OTHER ==
[2019-05-23 14:11] LABS: URINE PREG TEST NEGATIVE (NEGATIVE)
[2019-05-23 14:38] LABS: ALBUMIN 3.6 GM/DL (3.2-5.2); ALT/SGPT 29 U/L (12-78); BILIRUBIN,TOTAL 0.3 MG/DL (0.2-1.0); BLOOD UREA NITROGEN 15 MG/DL (7-18); CARBON DIOXIDE LEVEL 24 MEQ/L (21-32); CHLORIDE LEVEL 109 MEQ/L (98-107); GLOMERULAR FILTRATION RATE > 60.0 (>60); GLUCOSE, FASTING 110 MG/DL (70-100); LDH LACTATE DEHYDROGENASE 163 U/L (84-246); POTASSIUM SERUM 3.8 MEQ/L (3.5-5.1); SODIUM LEVEL 141 MEQ/L (136-145); TOTAL PROTEIN 6.3 GM/DL (6.4-8.2)
[2019-05-23 14:57] LABS: HEPATITIS B SURFACE ANTIGEN NEGATIVE (NEGATIVE)
[2019-05-23 15:25] LABS: HEPATITIS C VIRUS ABY INDEX < 0.0 INDEX (<0.8)
[2019-05-23 15:26] LABS: HEPATITIS B CORE ANTIBODY IGM NEGATIVE (NEGATIVE)
[2019-05-23 15:27] LABS: HEPATITIS A ANTIBODY IGM NEGATIVE (NEGATIVE)
[2019-05-23 18:56] LABS: BASO % 1.1 % (0.0-1.0); EOS # 0.1 10^3/uL (0.0-0.5); EOS % 3.5 % (0.0-3.0); HEMATOCRIT 42.9 % (36.0-47.0); HEMOGLOBIN 13.4 g/dl (12.0-15.5); LYMPH # 1.9 10^3/uL (1.5-5.0); LYMPH % 51.2 % (24.0-44.0); MEAN CORPUSCULAR HEMOGLOBIN 25.2 pg (27.0-33.0); MEAN CORPUSCULAR HGB CONC 31.2 g/dl (32.0-36.5); MEAN CORPUSCULAR VOLUME 80.8 fl (80.0-96.0); MONO # 0.5 10^3/uL (0.0-0.8); MONO % 14.2 % (0.0-5.0); NEUTROPHILS # 1.1 10^3/uL (1.5-8.5); NEUTROPHILS % 29.7 % (36.0-66.0); PLATELET COUNT, AUTOMATED 218 10^3/uL (150-450); RED BLOOD COUNT 5.31 10^6/uL (4.00-5.40); WHITE BLOOD COUNT 3.7 10^3/uL (4.0-10.0)
== END ==
LOC: M LAB REF 13:35
PROVIDERS: ATTEND Nurse Practitioner Family
DX: C83.38 Diffuse large B-cell lymphoma, lymph nodes of multiple sites (principal)

== ENCOUNTER → 2019-06-01 | Outpatient (REF) | payer OTHER ==
[2019-06-01 13:05] LABS: URINE PREG TEST NEGATIVE (NEGATIVE)
[2019-06-01 13:06] LABS: BASO # 0.1 10^3/uL (0.0-0.2); BASO % 1.2 % (0.0-1.0); EOS # 0.3 10^3/uL (0.0-0.5); EOS % 4.4 % (0.0-3.0); HEMATOCRIT 44.7 % (36.0-47.0); HEMOGLOBIN 14.1 g/dl (12.0-15.5); LYMPH # 1.5 10^3/uL (1.5-5.0); LYMPH % 26.4 % (24.0-44.0); MEAN CORPUSCULAR HEMOGLOBIN 25.2 pg (27.0-33.0); MEAN CORPUSCULAR HGB CONC 31.5 g/dl (32.0-36.5); MONO # 0.6 10^3/uL (0.0-0.8); MONO % 10.3 % (0.0-5.0); NEUTROPHILS # 3.3 10^3/uL (1.5-8.5); NEUTROPHILS % 57.2 % (36.0-66.0); PLATELET COUNT, AUTOMATED 264 10^3/uL (150-450); RED BLOOD COUNT 5.59 10^6/uL (4.00-5.40); WHITE BLOOD COUNT 5.7 10^3/uL (4.0-10.0)
[2019-06-01 13:38] LABS: ALBUMIN 3.8 GM/DL (3.2-5.2); ALT/SGPT 30 U/L (12-78); BILIRUBIN,TOTAL 0.5 MG/DL (0.2-1.0); BLOOD UREA NITROGEN 12 MG/DL (7-18); CALCIUM LEVEL 8.7 MG/DL (8.5-10.1); CARBON DIOXIDE LEVEL 26 MEQ/L (21-32); CHLORIDE LEVEL 104 MEQ/L (98-107); CREATININE FOR GFR 0.48 MG/DL (0.55-1.30); GLOMERULAR FILTRATION RATE > 60.0 (>60); GLUCOSE, FASTING 83 MG/DL (70-100); LDH LACTATE DEHYDROGENASE 153 U/L (84-246); POTASSIUM SERUM 4.1 MEQ/L (3.5-5.1); SODIUM LEVEL 138 MEQ/L (136-145); TOTAL PROTEIN 6.8 GM/DL (6.4-8.2)
== END ==
LOC: M LAB REF 12:17
PROVIDERS: ATTEND Nurse Practitioner Family
DX: C83.38 Diffuse large B-cell lymphoma, lymph nodes of multiple sites (principal)

== ENCOUNTER → 2019-06-27 | Outpatient (REF) | payer OTHER ==
[2019-06-27 12:55] LABS: URINE PREG TEST NEGATIVE (NEGATIVE)
[2019-06-27 13:04] LABS: BASO # 0.2 10^3/uL (0.0-0.2); EOS # 0.2 10^3/uL (0.0-0.5); EOS % 3.9 % (0.0-3.0); HEMATOCRIT 43.6 % (36.0-47.0); HEMOGLOBIN 13.7 g/dl (12.0-15.5); LYMPH # 1.6 10^3/uL (1.5-5.0); LYMPH % 35.1 % (24.0-44.0); MEAN CORPUSCULAR HEMOGLOBIN 25.2 pg (27.0-33.0); MEAN CORPUSCULAR HGB CONC 31.4 g/dl (32.0-36.5); MEAN CORPUSCULAR VOLUME 80.1 fl (80.0-96.0); MONO # 0.6 10^3/uL (0.0-0.8); MONO % 13.4 % (0.0-5.0); NEUTROPHILS % 43.2 % (36.0-66.0); PLATELET COUNT, AUTOMATED 255 10^3/uL (150-450); RED BLOOD COUNT 5.44 10^6/uL (4.00-5.40); WHITE BLOOD COUNT 4.6 10^3/uL (4.0-10.0)
[2019-06-27 13:31] LABS: BASO % 4.2 % (0.0-1.0)
[2019-06-27 13:34] LABS: ALBUMIN 3.5 GM/DL (3.2-5.2); ALT/SGPT 25 U/L (12-78); BILIRUBIN,TOTAL 0.5 MG/DL (0.2-1.0); BLOOD UREA NITROGEN 13 MG/DL (7-18); CALCIUM LEVEL 8.5 MG/DL (8.5-10.1); CARBON DIOXIDE LEVEL 26 MEQ/L (21-32); CHLORIDE LEVEL 109 MEQ/L (98-107); CREATININE FOR GFR 0.51 MG/DL (0.55-1.30); GLOMERULAR FILTRATION RATE > 60.0 (>60); GLUCOSE, FASTING 83 MG/DL (70-100); LDH LACTATE DEHYDROGENASE 137 U/L (84-246); POTASSIUM SERUM 3.8 MEQ/L (3.5-5.1); SODIUM LEVEL 139 MEQ/L (136-145); TOTAL PROTEIN 6.6 GM/DL (6.4-8.2)
== END ==
LOC: M LAB REF 11:39
PROVIDERS: ATTEND Nurse Practitioner Family
DX: C83.38 Diffuse large B-cell lymphoma, lymph nodes of multiple sites (principal)

== ENCOUNTER → 2019-07-25 | Outpatient (REF) | payer OTHER ==
[2019-07-25 11:46] LABS: URINE PREG TEST NEGATIVE (NEGATIVE)
[2019-07-25 11:51] LABS: BASO # 0.1 10^3/uL (0.0-0.2); BASO % 2.8 % (0.0-1.0); EOS # 0.4 10^3/uL (0.0-0.5); EOS % 8.3 % (0.0-3.0); HEMATOCRIT 46.5 % (36.0-47.0); HEMOGLOBIN 14.8 g/dl (12.0-15.5); LYMPH # 2.2 10^3/uL (1.5-5.0); LYMPH % 47.6 % (24.0-44.0); MEAN CORPUSCULAR HEMOGLOBIN 25.8 pg (27.0-33.0); MEAN CORPUSCULAR HGB CONC 31.8 g/dl (32.0-36.5); MONO # 0.7 10^3/uL (0.0-0.8); MONO % 16.1 % (0.0-5.0); NEUTROPHILS # 1.2 10^3/uL (1.5-8.5); PLATELET COUNT, AUTOMATED 232 10^3/uL (150-450); RED BLOOD COUNT 5.74 10^6/uL (4.00-5.40); WHITE BLOOD COUNT 4.6 10^3/uL (4.0-10.0)
[2019-07-25 12:20] LABS: ALBUMIN 3.6 GM/DL (3.2-5.2); ALT/SGPT 40 U/L (12-78); BILIRUBIN,TOTAL 0.4 MG/DL (0.2-1.0); BLOOD UREA NITROGEN 16 MG/DL (7-18); CALCIUM LEVEL 8.1 MG/DL (8.5-10.1); CARBON DIOXIDE LEVEL 27 MEQ/L (21-32); CHLORIDE LEVEL 111 MEQ/L (98-107); CREATININE FOR GFR 0.53 MG/DL (0.55-1.30); GLOMERULAR FILTRATION RATE > 60.0 (>60); GLUCOSE, FASTING 80 MG/DL (70-100); LDH LACTATE DEHYDROGENASE 150 U/L (84-246); POTASSIUM SERUM 4.3 MEQ/L (3.5-5.1); SODIUM LEVEL 143 MEQ/L (136-145); TOTAL PROTEIN 6.4 GM/DL (6.4-8.2)
== END ==
LOC: M LAB REF 10:42
PROVIDERS: ATTEND Nurse Practitioner Family
DX: C83.38 Diffuse large B-cell lymphoma, lymph nodes of multiple sites (principal)

== ENCOUNTER → 2019-08-05 | Outpatient (REF) | payer OTHER ==
[2019-08-05 09:59] LABS: BASO # 0.1 10^3/uL (0.0-0.2); BASO % 2.5 % (0.0-1.0); EOS # 0.3 10^3/uL (0.0-0.5); EOS % 6.7 % (0.0-3.0); HEMATOCRIT 47.2 % (36.0-47.0); HEMOGLOBIN 15.1 g/dl (12.0-15.5); LYMPH # 1.4 10^3/uL (1.5-5.0); LYMPH % 30.1 % (24.0-44.0); MEAN CORPUSCULAR HEMOGLOBIN 25.9 pg (27.0-33.0); MEAN CORPUSCULAR VOLUME 80.8 fl (80.0-96.0); MONO # 0.5 10^3/uL (0.0-0.8); MONO % 10.4 % (0.0-5.0); NEUTROPHILS # 2.4 10^3/uL (1.5-8.5); NEUTROPHILS % 50.1 % (36.0-66.0); PLATELET COUNT, AUTOMATED 185 10^3/uL (150-450); RED BLOOD COUNT 5.84 10^6/uL (4.00-5.40); WHITE BLOOD COUNT 4.8 10^3/uL (4.0-10.0)
[2019-08-05 10:23] LABS: ALBUMIN 3.7 GM/DL (3.2-5.2); ALT/SGPT 34 U/L (12-78); BILIRUBIN,TOTAL 0.5 MG/DL (0.2-1.0); BLOOD UREA NITROGEN 15 MG/DL (7-18); CALCIUM LEVEL 8.8 MG/DL (8.5-10.1); CARBON DIOXIDE LEVEL 31 MEQ/L (21-32); CHLORIDE LEVEL 107 MEQ/L (98-107); CREATININE FOR GFR 0.58 MG/DL (0.55-1.30); GLOMERULAR FILTRATION RATE > 60.0 (>60); GLUCOSE, FASTING 92 MG/DL (70-100); POTASSIUM SERUM 4.3 MEQ/L (3.5-5.1); SODIUM LEVEL 141 MEQ/L (136-145); TOTAL PROTEIN 6.5 GM/DL (6.4-8.2)
== END ==
LOC: M LAB REF 09:37
PROVIDERS: ATTEND Nurse Practitioner Family
DX: C83.38 Diffuse large B-cell lymphoma, lymph nodes of multiple sites (principal)

== ENCOUNTER → 2019-08-12 | Outpatient (CLI) | payer OTHER ==
[~2019-08-12] MED LIST changes: +REVL20CA PO
[2019-08-12 14:44] LABS: CORTISOL BASELINE 4.9 UG/DL (4.3-22.4); FREE T4 1.05 NG/DL (0.76-1.46); THYROID STIMULATING HORMONE 1.31 uIU/ML (0.358-3.740)
== END ==
LOC: M WUC 13:00
PROVIDERS: ATTEND Physician Assistant Medical
DX: C83.30 Diffuse large B-cell lymphoma, unspecified site (principal)

== ENCOUNTER → 2019-08-22 | Outpatient (CLI) | payer OTHER ==
[2019-08-22 12:38] LABS: URINE PREG TEST NEGATIVE (NEGATIVE)
[2019-08-22 12:49] LABS: BASO # 0.1 10^3/uL (0.0-0.2); BASO % 1.9 % (0.0-1.0); EOS # 0.2 10^3/uL (0.0-0.5); EOS % 4.2 % (0.0-3.0); HEMATOCRIT 45.8 % (36.0-47.0); HEMOGLOBIN 14.2 g/dl (12.0-15.5); LYMPH # 1.7 10^3/uL (1.5-5.0); LYMPH % 39.8 % (24.0-44.0); MEAN CORPUSCULAR HEMOGLOBIN 25.1 pg (27.0-33.0); MEAN CORPUSCULAR VOLUME 80.9 fl (80.0-96.0); MONO # 0.7 10^3/uL (0.0-0.8); NEUTROPHILS # 1.7 10^3/uL (1.5-8.5); NEUTROPHILS % 38.9 % (36.0-66.0); PLATELET COUNT, AUTOMATED 249 10^3/uL (150-450); RED BLOOD COUNT 5.66 10^6/uL (4.00-5.40); WHITE BLOOD COUNT 4.3 10^3/uL (4.0-10.0)
[2019-08-22 12:58] LABS: ALBUMIN 3.6 GM/DL (3.2-5.2); ALT/SGPT 29 U/L (12-78); BILIRUBIN,TOTAL 0.3 MG/DL (0.2-1.0); BLOOD UREA NITROGEN 15 MG/DL (7-18); CALCIUM LEVEL 8.8 MG/DL (8.5-10.1); CARBON DIOXIDE LEVEL 28 MEQ/L (21-32); CHLORIDE LEVEL 109 MEQ/L (98-107); CREATININE FOR GFR 0.54 MG/DL (0.55-1.30); GLOMERULAR FILTRATION RATE > 60.0 (>60); GLUCOSE, FASTING 95 MG/DL (70-100); LDH LACTATE DEHYDROGENASE 130 U/L (84-246); POTASSIUM SERUM 4.5 MEQ/L (3.5-5.1); SODIUM LEVEL 141 MEQ/L (136-145); TOTAL PROTEIN 6.4 GM/DL (6.4-8.2)
== END ==
LOC: M WUC 09:56
PROVIDERS: ATTEND Nurse Practitioner Family
DX: C83.38 Diffuse large B-cell lymphoma, lymph nodes of multiple sites (principal)

== ENCOUNTER → 2019-09-19 | Outpatient (CLI) | payer OTHER | LOC: M PLALAB 13:20 | PROVIDERS: ATTEND Nurse Practitioner | DX: Z00.8 Encounter for other general examination (principal); Z11.59 Encounter for screening for other viral diseases ==

== ENCOUNTER → 2019-09-29 | Outpatient (CLI) | payer OTHER | LOC: M LABSMTC 13:16 | PROVIDERS: ATTEND Internal Medicine Hematology | DX: Z03.818 Encounter for observation for suspected exposure to other biological agents ruled out (principal); Z11.59 Encounter for screening for other viral diseases | CPT/HCPCS: 87486; 87581; 87633; 87798; C9803 ==

== ENCOUNTER → 2019-11-21 | Outpatient (REF) | payer OTHER ==
[2019-12-18 19:55] LABS: BASO # 0.1 10^3/uL (0.0-0.2); BASO % 1.4 % (0.0-1.0); EOS % 0.7 % (0.0-3.0); HEMATOCRIT 35.7 % (36.0-47.0); HEMOGLOBIN 11.3 g/dl (12.0-15.5); LYMPH # 1.8 10^3/uL (1.5-5.0); LYMPH % 41.2 % (24.0-44.0); MEAN CORPUSCULAR HGB CONC 31.7 g/dl (32.0-36.5); MEAN CORPUSCULAR VOLUME 88.6 fl (80.0-96.0); MONO # 0.8 10^3/uL (0.0-0.8); NEUTROPHILS # 1.7 10^3/uL (1.5-8.5); PLATELET COUNT, AUTOMATED 236 10^3/uL (150-450); RED BLOOD COUNT 4.03 10^6/uL (4.00-5.40); WHITE BLOOD COUNT 4.4 10^3/uL (4.0-10.0)
[2019-12-31 22:12] LABS: BLOOD UREA NITROGEN 18 MG/DL (7-18); CALCIUM LEVEL 8.9 MG/DL (8.5-10.1); CARBON DIOXIDE LEVEL 27 MEQ/L (21-32); CHLORIDE LEVEL 111 MEQ/L (98-107); CREATININE FOR GFR 0.62 MG/DL (0.55-1.30); GLOMERULAR FILTRATION RATE > 60.0 (>60); GLUCOSE, FASTING 94 MG/DL (70-100); POTASSIUM SERUM 4.2 MEQ/L (3.5-5.1); SODIUM LEVEL 143 MEQ/L (136-145)
[2019-12-31 22:13] LABS: ALBUMIN 3.6 GM/DL (3.2-5.2); ALT/SGPT 57 U/L (12-78); BILIRUBIN,TOTAL 0.3 MG/DL (0.2-1.0); LDH LACTATE DEHYDROGENASE 199 U/L (84-246); PHOSPHORUS LEVEL 4.1 MG/DL (2.5-4.9); TOTAL PROTEIN 6.6 GM/DL (6.4-8.2)
== END ==
LOC: M LAB REF 10:09
PROVIDERS: ATTEND Internal Medicine Hematology
DX: C83.38 Diffuse large B-cell lymphoma, lymph nodes of multiple sites (principal)

== ENCOUNTER → 2020-01-18 | Outpatient (CLI) | payer OTHER | LOC: M PLALAB 15:46 | PROVIDERS: ATTEND Obstetrics & Gynecology | DX: O36.80X0 Pregnancy with inconclusive fetal viability, not applicable or unspecified (principal); Z3A.00 Weeks of gestation of pregnancy not specified ==

== ENCOUNTER → 2020-03-06 | Outpatient (REF) | payer OTHER | LOC: M LAB REF 15:48 | PROVIDERS: ATTEND Physician Assistant | DX: D48.5 Neoplasm of uncertain behavior of skin (principal) ==

== ENCOUNTER → 2020-05-29 | Outpatient (REF) | payer OTHER | LOC: M SFHCWAGY 13:52 | PROVIDERS: ATTEND Obstetrics & Gynecology | DX: Z01.419 Encounter for gynecological examination (general) (routine) without abnormal findings (principal); Z12.4 Encounter for screening for malignant neoplasm of cervix ==

== ENCOUNTER → 2021-09-06 | Outpatient (CLI) | payer OTHER ==
[~2021-09-06] MED LIST changes: +LIDO1CRE42 TOP; -LIDO2.5C15 TOP; +LIDOCAINE 1% MDV 20ML VIAL As Ordered ONE
[2021-09-06 13:05] VITALS: BP 121/74
== END ==
LOC: M IRPRO 12:22
PROVIDERS: ATTEND Family Medicine
DX: C85.10 Unspecified B-cell lymphoma, unspecified site (principal)

== ENCOUNTER → 2022-03-12 | Outpatient (REF) | payer OTHER ==
[~2022-03-12] MED LIST changes: -LIDOCAINE 1% MDV 20ML VIAL As Ordered ONE
[2022-03-12 13:51] LABS: BASO # 0.1 10^3/uL (0.0-0.2); BASO % 2.1 % (0.0-1.0); EOS # 0.5 10^3/uL (0.0-0.5); EOS % 11.8 % (0.0-3.0); HEMATOCRIT 37.9 % (36.0-47.0); HEMOGLOBIN 11.9 g/dl (12.0-15.5); LYMPH # 0.5 10^3/uL (1.5-5.0); LYMPH % 10.6 % (24.0-44.0); MEAN CORPUSCULAR HEMOGLOBIN 27.8 pg (27.0-33.0); MEAN CORPUSCULAR HGB CONC 31.4 g/dl (32.0-36.5); MEAN CORPUSCULAR VOLUME 88.6 fl (80.0-96.0); MONO # 0.7 10^3/uL (0.0-0.8); MONO % 17.1 % (2.0-8.0); NEUTROPHILS # 2.5 10^3/uL (1.5-8.5); NEUTROPHILS % 57.9 % (36.0-66.0); PLATELET COUNT, AUTOMATED 269 10^3/uL (150-450); RED BLOOD COUNT 4.28 10^6/uL (4.00-5.40); WHITE BLOOD COUNT 4.3 10^3/uL (4.0-10.0)
== END ==
LOC: M WUC 09:31
PROVIDERS: ATTEND Internal Medicine Hematology
DX: C83.38 Diffuse large B-cell lymphoma, lymph nodes of multiple sites (principal)

== ENCOUNTER → 2022-10-06 | Outpatient (CLI) | payer OTHER ==
[2022-10-06 13:22] LABS: BASO % 0.7 % (0.0-1.0); EOS # 0.2 10^3/uL (0.0-0.5); EOS % 3.4 % (0.0-3.0); HEMATOCRIT 40.7 % (36.0-47.0); HEMOGLOBIN 12.4 g/dl (12.0-15.5); LYMPH # 0.9 10^3/uL (1.5-5.0); LYMPH % 16.3 % (24.0-44.0); MEAN CORPUSCULAR HEMOGLOBIN 25.2 pg (27.0-33.0); MEAN CORPUSCULAR HGB CONC 30.5 g/dl (32.0-36.5); MEAN CORPUSCULAR VOLUME 82.6 fl (80.0-96.0); MONO # 0.5 10^3/uL (0.0-0.8); MONO % 9.2 % (2.0-8.0); NEUTROPHILS # 3.8 10^3/uL (1.5-8.5); PLATELET COUNT, AUTOMATED 300 10^3/uL (150-450); RED BLOOD COUNT 4.93 10^6/uL (4.00-5.40); WHITE BLOOD COUNT 5.4 10^3/uL (4.0-10.0)
[2022-10-06 13:45] LABS: ALBUMIN 3.6 G/DL (3.2-5.2); ALKALINE PHOSPHATASE 83 U/L (46-116); ALT/SGPT 24 U/L (7.0-40); AST/SGOT 13 U/L (<34); BILIRUBIN,TOTAL 0.5 MG/DL (0.3-1.2); BLOOD UREA NITROGEN 26 MG/DL (9-23); CALCIUM LEVEL 8.5 MG/DL (8.5-10.1); CARBON DIOXIDE LEVEL 26 MMOL/L (20-31); CHLORIDE LEVEL 108 MMOL/L (98-107); CHOLESTEROL LEVEL 126 MG/DL (<200); CHOLESTEROL RISK RATIO 3.67 (<5); CREATININE FOR GFR 0.66 MG/DL (0.55-1.30); GLOMERULAR FILTRATION RATE > 60.0 (>60); GLUCOSE, FASTING 89 MG/DL (60-100); HDL CHOLESTEROL 34.3 MG/DL (>40); LDL CHOLESTEROL 77.1 MG/DL (<100); NON-HDL-C 91.7 MG/DL; POTASSIUM SERUM 4.5 MMOL/L (3.5-5.1); SODIUM LEVEL 141 MMOL/L (136-145); TOTAL PROTEIN 5.9 G/DL (5.7-8.2); TRIGLYCERIDES LEVEL 73 MG/DL (<150)
[2022-10-06 13:50] LABS: THYROID STIMULATING HORMONE 1.315 uIU/ML (0.55-4.78)
[2022-10-06 14:58] LABS: HEMOGLOBIN A1c 5.1 % (4.0-6.0)
== END ==
LOC: M WUC 10:05
PROVIDERS: ATTEND Family Medicine
DX: Z13.21 Encounter for screening for nutritional disorder (principal); Z13.0 Encounter for screening for diseases of the blood and blood-forming organs and certain disorders involving the immune mechanism

== ENCOUNTER → 2024-10-20 | Outpatient (CLI) | payer OTHER ==
[~2024-10-20] MED LIST changes: -LIDO1CRE42 TOP; +LIDO30CR18 TOP; +ONDA-284 PO; -ONDA8TAB8 PO; -PRED50TA PO; +PRED50TA57 PO; +PROHANCE 279.3MG/ML 15ML VIAL ONE; +PROHANCE 279.3MG/ML 5ML VIAL ONE
== END ==
LOC: M PLAIMG 08:02
PROVIDERS: ATTEND Family Medicine
DX: R92.8 Other abnormal and inconclusive findings on diagnostic imaging of breast (principal)
CPT/HCPCS: A9576; C8908

== ENCOUNTER → 2025-01-25 | Outpatient (CLI) | payer OTHER ==
[~2025-01-25] MED LIST changes: -PROHANCE 279.3MG/ML 15ML VIAL ONE; -PROHANCE 279.3MG/ML 5ML VIAL ONE
== END ==
LOC: M PLAIMG 09:07
PROVIDERS: ATTEND Family Medicine
DX: M54.50 Low back pain, unspecified (principal); M53.3 Sacrococcygeal disorders, not elsewhere classified